=== PATIENT | male | born 1995 | race Two or more races ===

== ENCOUNTER 2022-07-25 00:55 | Emergency (ER) | payer OTHER ==
[~2022-07-25] VITALS: Ht 170.2 cm; Wt 65.8 kg
--- NOTE | 2022-07-25 01:26 | NUR ---
[address] FOR OD ON EITHER COCAINE OR FENTANYL. CPR GIVEN BY [employer] AND [employer] 8MG IN GIVEN BY EMS ON THE SCENE. A/OX3 UPON TRIAGE, ABLE TO FOLLOW COMANDS. TOLERATING R/A WELL WITH NO RESP DISTRESS. RR EVEN AND NONLABORED. CONNECTED PT TO POX AND MONNITOR. [facility]
[2022-07-25] MEDS ORDERED: ONDANSETRON HCL/PF 4 MG/2 ML VIAL ONE (02:39)
[2022-07-25] MEDS ORDERED: NALO4SPR BNOSTRILS (02:42)
[2022-07-25] MEDS ORDERED: ONDANSETRON HCL/PF - ER 4 MG/2 ML VIAL IV ONE (03:00)
[2022-07-25] MEDS ORDERED: ONDANSETRON HCL/PF 4 MG/2 ML VIAL IV ONE (04:00)
--- NOTE | 2022-07-25 05:12 | NUR ---
PATIENT AWAKE, ALERT AND OX4. VERBALLY RESPONSIVE. DENIED SI, HI. AMBULATORY WITH STEADY GAITS. PO INTAKE TOLERATED WELL. MEDICALLY STABLE FOR D/C PER MD
--- NOTE | 2022-07-25 05:59 | NUR ---
Patient discharged to home in stable condition. Written and verbal after care instructions given. Patient verbalizes understanding of instruction. IV removed. Catheter intact and site benign. Pressure and 4x4 applied to site. No bleeding noted. PT ambulatory with a steady gait. VSS
[2022-07-25 06:00] VITALS: BP 118/85
== END 2022-07-25 07:12 | disposition home or self-care (01) ==
LOC: ER 00:57
DX: R41.82 Altered mental status, unspecified (principal); T40.411A Poisoning by fentanyl or fentanyl analogs, accidental (unintentional), initial encounter; Y92.89 Other specified places as the place of occurrence of the external cause
CPT/HCPCS: 99285; 96374; J2405